=== PATIENT | male | born 1935 | race Caucasian/White ===

== ENCOUNTER → 2017-02-19 | Outpatient (CLI) | END | disposition home or self-care (01) ==

== ENCOUNTER 2018-04-08 12:29 | Emergency (ER) | payer MEDICARE, OTHER ==
[~2018-04-08] VITALS: Ht 160 cm; Wt 70.0 kg
[~2018-04-08 12:29] MED LIST: AMLO-147; ASPI-535; BENA40TA54; CITA40TA6; CLOP75TA19; FAMO-96; GLYB1POW; INSU100V18; MECL25TA2; MELO7.5T38; METO-53; SIMV20TA2; TAMS-14; TEMA7.5C2; [UNRECOGNIZED DRUG - CODE]
[2018-04-08 12:35] VITALS: Ht 160 cm; Wt 70.0 kg
--- NOTE | 2018-04-08 12:45 | ERD ---
ER Documentation Chief Complaint Chief Complaint dizziness HPI The patient is a 82-year-old male, presenting to the ER because he is dizzy from the daycare while he was sitting, he felt as if the room was spinning, nausea and vomited twice of mostly mucus. He felt much better at this time. He denies headache, syncope, near syncope, facial pain, neck pain, chest pain, dyspnea, abdominal pain, vomiting, dizzy, diarrhea. He smokes socially, denies drinking. Past medical history: CAD, diabetes mellitus, anxiety, depression, BPH, dyslipidemia Past surgical history: Stent PCI ROS All systems reviewed and are negative except as per history of present illness. Medications Home Meds Active Scripts Meclizine Hcl* (Antivert*) 12.5 Mg Tab, 25 MG PO Q6H PRN for DIZZINESS, #20 TAB Prov:KIRK RAMIREZ MD 04/08/18 Reported Medications Lisinopril/Hydrochlorothiazide (Lisinopril-Hctz 20-12.5 mg Tab) 1 Each Tablet, 1 TAB ORAL DAILY 04/08/18 Bimatoprost* (Lumigan*) 0.01%-2.5 Ml Opht Drops, 1 DROP BOTH EYES HS, EA 04/08/18 Temazepam* (Temazepam*) 7.5 Mg Capsule, 7.5 MG PO HS PRN for INSOMNIA, CAP 04/08/18 Tamsulosin Hcl* (Tamsulosin Hcl*) 0.4 Mg Cap.er.24h, 0.4 MG PO HS, CAP 04/08/18 Metoprolol Succinate* (Toprol XL*) 50 Mg Tab.er.24h, 1 TAB ORAL DAILY 04/08/18 Sildenafil Citrate* (Sildenafil Citrate*) 20 Mg Tablet, 1 MG ORAL DAILY 04/08/18 Sitagliptin Phos/Metformin HCl (Janumet 50-1,000 mg Tablet) 1 Each Tablet, 1 TAB PO DAILY, TAB 04/08/18 Tramadol HCl (Tramadol HCl) 50 Mg Tablet, 50 MG PO Q8H PRN for PAIN LEVEL 4-7, #120 TAB 04/08/18 Ezetimibe* (Zetia*) 10 Mg Tablet, 10 MG PO HS, TAB 04/08/18 Atorvastatin* (Atorvastatin*) 80 Mg Tablet, 80 MG PO QHS, #30 TAB 04/08/18 Hydrocodone/Acetaminophen ([place] 5-325 Tablet) 1 Each Tablet, 1 TAB PO Q6H PRN for PAIN LEVEL 6-10, TAB 04/08/18 Aspirin* (Aspirin* EC) 81 Mg Tablet., 81 MG PO DAILY, TAB 04/08/18 Amlodipine Besylate* (Amlodipine Besylate*) 10 Mg Tablet, 10 MG PO DAILY, #30 TAB 04/08/18 Discontinued Reported Medications Insulin Lispro (Humalog) 100 U/Ml Vial 12/29/09 Temazepam* (Restoril*) 7.5 Mg Capsule 12/29/09 Citalopram Hydrobromide* (Citalopram Hydrobromide*) 40 Mg Tablet 12/29/09 Famotidine* (Pepcid*) 20 Mg Tablet 12/29/09 Meloxicam* (Meloxicam*) 7.5 Mg Tablet 12/29/09 Tamsulosin Hcl* (Flomax*) 0.4 Mg Cap.sr.24h 12/29/09 Meclizine Hcl* (Antivert*) 25 Mg Tablet 12/29/09 Clopidogrel Bisulfate (Plavix) 75 Mg Tablet 12/29/09 Simvastatin (Simvastatin) 20 Mg Tablet 12/29/09 Aliskiren Hemifumarate* (Tekturna*) 150 Mg Tablet 12/29/09 Glyburide (Glyburide) 1 Gm Powder 12/29/09 Benazepril Hcl* (Lotensin*) 40 Mg Tablet 12/29/09 Amlodipine Besylate* (Amlodipine Besylate*) 10 Mg Tablet 12/29/09 Metoprolol (Lopressor) 50 Mg Tablet 12/29/09 Aspirin Ec (Aspir 81) 81 Mg Tablet. 12/29/09 Allergies Allergies: Coded Allergies: No Known Allergies (Verified Allergy, Mild, 04/08/18) PMhx/Soc History of Surgery: No Anesthesia Reaction: No Hx Neurological Disorder: No Hx Respiratory Disorders: No Hx Cardiac Disorders: Yes (HTN. HISTORY OF STENT IN AND ) Hx Psychiatric Problems: No Hx Miscellaneous Medical Probl: No Hx Alcohol Use: No Hx Substance Use: No Hx Tobacco Use: Yes Physical Exam Vitals Vital Signs Date Temp Pulse Resp B/P (MAP) Pulse Ox O2 O2 Flow FiO2 Time Delivery Rate 04/08/18 98.1 73 17 113/68 95 Room Air 16:18 (83) 73 04/08/18 98.1 72 17 115/63 95 Room Air 15:30 (80) 04/08/18 71 18 102/55 91 Room Air 13:35 (71) 04/08/18 98.1 80 18 120/60 90 12:35 (80) Physical Exam Const: No acute distress. Head: Atraumatic. Eyes: Normal Conjunctiva. ENT: Normal External Ears, Nose and Mouth. Neck: Full range of motion. No meningismus. Resp: Clear to auscultation bilaterally. Cardio: Regular rate and rhythm. Abd: Soft, non distended, normal bowel sounds, non tender. Skin: No petechiae or rashes. Back: No midline or flank tenderness. Ext: No cyanosis, or edema. Neur: Awake and alert. No focal deficit Psych: Normal Mood and Affect. Result Diagram: 04/08/18 1310 04/08/18 1310 Results 24 hrs Laboratory Tests Test 04/08/18 13:10 White Blood Count 11.0 10^3/ul Red Blood Count 5.30 10^6/ul Hemoglobin 15.8 g/dl Hematocrit 48.9 % Mean Corpuscular Volume 92.3 fl Mean Corpuscular Hemoglobin 29.8 pg Mean Corpuscular Hemoglobin Concent 32.3 g/dl Red Cell Distribution Width 13.8 % Platelet Count 215 10^3/UL Mean Platelet Volume 11.7 fl Immature Granulocytes % 0.500 % Neutrophils % 73.1 % Lymphocytes % 17.9 % Monocytes % 7.8 % Eosinophils % 0.3 % Basophils % 0.4 % Nucleated Red Blood Cells % 0.0 /100WBC Immature Granulocytes # 0.060 10^3/ul Neutrophils # 8.0 10^3/ul Lymphocytes # 2.0 10^3/ul Monocytes # 0.9 10^3/ul Eosinophils # 0.0 10^3/ul Basophils # 0.0 10^3/ul Nucleated Red Blood Cells # 0.0 10^3/ul Prothrombin Time 12.4 Sec Prothrombin Time Ratio 1.0 INR International Normalized Ratio 0.91 Activated Partial Thromboplast Time 23.8 Sec Sodium Level 140 mmol/L Potassium Level 4.0 mmol/L Chloride Level 99 mmol/L Carbon Dioxide Level 28 mmol/L Anion Gap 13 Blood Urea Nitrogen 28 mg/dl Creatinine 1.60 mg/dl Est Glomerular Filtrat Rate mL/min mL/min Glucose Level 142 mg/dl Calcium Level 10.0 mg/dl Troponin I < 0.012 ng/ml Current Medications Medications Dose Sig/Tammy Start Time Status Last (Trade) Ordered Route PRN Stop Time Admin Dose Reason Admin Meclizine 25 mg ONCE ONCE 04/08/18 DC 04/08/18 HCl PO 13:30 04/08/18 13:29 (Antivert) 13:31 Procedures/MDM [place] [address] Radiology Main Line: [phone] DIAGNOSTIC IMAGING REPORT Patient: CORAZON CARRANZA : 1935 Age: 82 Sex: M MR #: [id number] DOS: 04/08/18 1305 Ordering MD: KIRK RAMIREZ MD Location: E/R Room/Bed: PROCEDURE: CT BRAIN WITHOUT CONTRAST. CLINICAL INDICATION: Dizziness TECHNIQUE: A CT of the brain was performed on a multidetector high-resolution CT scanner utilizing axial imaging from the skull base through the vertex without IV contrast. Multiplanar reformatted images were made. Images were reviewed on a PACS workstation. The CTDIvol is 39 mGy and the DLP is 634.2 mGycm. One or more of the following dose reduction techniques were used: - Automated exposure control. - Adjustment of the mA and/or kV according to patient size. - Use of iterative reconstruction technique. DICOM images are available. COMPARISON: None FINDINGS: The posterior fossa structures are unremarkable. The law, midbrain, and medulla appear to be with normal limits. There is no evidence of acute intracranial hemorrhage, infarct, or extra-axial fluid collection. No gross mass effect or midline shift. Cerebral sulci, cisternal spaces, and ventricles are prominent. Periventricular/subcortical white matter lucencies are identified. There are intracranial atherosclerotic calcifications. The visualized paranasal sinuses demonstrates left maxillary and left frontal sinus disease. The mastoid air cells are well-aerated. The calvarium is unremarkable. IMPRESSION: 1. No evidence of acute intracranial hemorrhage, infarct, or extra-axial fluid collection. If clinical symptoms persist, consider follow-up MRI of the brain. 2. 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 3. Intracranial atherosclerotic disease. 4. Left maxillary and left frontal sinus disease. RPTAT: AARR Silvana Irby Physician Date Time Electronically viewed and signed by Silvana Irby Physician on 04/08/2018 14:08 JL/ CC: KIRK RAMIREZ MD [id number] EKG: Read by emergency physician Rate/Rhythm: Normal Sinus Rhythm 69 beats/min QRS, ST, T-waves: No ST elevation, no T inversion, right bundle branch block, inferior Q waves Impression: Abnormal EKG MEDICAL MAKING DECISION: The patient is a 82-year-old male, presenting with acute dizziness, most likely acute benign positional vertigo, was treated with Antivert 25 mg p.o. for acute dizziness with good response, is stable for outpatient follow-up The differential diagnoses considered include but are not limited to central causes such as cerebellar infarct, cerebellar hemorrhage, cerebellar tumor, acoustic neuroma, peripheral causes such as benign positional vertigo, labyrinthitis, medication, Meniere's disease. Departure Diagnosis: Primary Impression: Dizziness Condition: Good Comments He was discharged with Antivert I discussed the findings with the patient. I advised the patient to follow-up with the primary physician in about 2-3 days, sooner if needed and return if any concern. Disclaimer: Inadvertent spelling and grammatical errors are likely due to EHR/dictation software use and do not reflect on the overall quality of patient care. Also, please note that the electronic time recorded on this note does not necessarily reflect the actual time of the patient encounter. KIRK RAMIREZ MD Apr 08, 2018 12:45
[2018-04-08] MEDS ORDERED: MECLIZINE 12.5 MG TAB PO ONE (13:30)
[2018-04-08] MEDS ORDERED: ASPI-817 PO (14:36)
[2018-04-08] MEDS ORDERED: ATOR-2 PO (14:36)
[2018-04-08] MEDS ORDERED: TAMS0.4C2 PO (14:36)
[2018-04-08] MEDS ORDERED: AMLO-147 PO (14:36)
[2018-04-08] MEDS ORDERED: SILD20TA ORAL (14:36)
[2018-04-08] MEDS ORDERED: METO-319 ORAL (14:36)
[2018-04-08] MEDS ORDERED: EZET10TA31 PO (14:36)
[2018-04-08] MEDS ORDERED: SITA1TAB5 PO (14:36)
[2018-04-08] MEDS ORDERED: TRAM50TA2 PO (14:36)
[2018-04-08] MEDS ORDERED: BIMA2.5D BOTH EYES (14:36)
[2018-04-08] MEDS ORDERED: HYDR-4011 PO (14:36)
[2018-04-08] MEDS ORDERED: TEMA7.5C PO (14:36)
[2018-04-08] MEDS ORDERED: LISI1TAB6 ORAL (14:46)
[2018-04-08] MEDS ORDERED: MECL12.574 PO (16:09)
[2018-04-08 16:18] VITALS: BP 113/68; PULSE 73; RESP 17
== END 2018-04-08 16:18 | disposition home or self-care (01) ==
LOC: E/R 12:29
DX: R42 Dizziness and giddiness (principal); I25.10 Atherosclerotic heart disease of native coronary artery without angina pectoris; E11.9 Type 2 diabetes mellitus without complications; Z79.82 Long term (current) use of aspirin; Z79.01 Long term (current) use of anticoagulants; Z79.4 Long term (current) use of insulin; Z98.61 Coronary angioplasty status; Z87.891 Personal history of nicotine dependence
CPT/HCPCS: 36415; 70450; 80048; 84484; 85025; 85610; 85730; 93005